=== PATIENT | female | born 1975 | race Caucasian/White ===

== ENCOUNTER 2017-02-26 10:54 | Day surgery (SDC) | payer OTHER ==
[~2017-02-26] VITALS: Ht 162.6 cm; Wt 66.7 kg
[~2017-02-26 10:54] MED LIST: ALEVE220 MG PO; PROBIOTIC1 EAC1 PO; TYLENOL REGULA325 MG PO
[2017-02-26 11:52] VITALS: BP 127/79; BP 128/79
[2017-02-26] MEDS ORDERED: HYDROCODON-ACE1 EAC7 PO (15:10)
[2017-02-26 15:55] LABS: INTERNAL CONTROL VALID? YES
[2017-02-26 16:20] VITALS: BP 126/72
[2017-02-26 17:05] VITALS: BP 109/67
== END 2017-02-26 17:25 | disposition home or self-care (01) ==
LOC: SDC 10:54
PROVIDERS: Surgery
PROC: 0HBU0ZX Excision of Left Breast, Open Approach, Diagnostic (ICD-10-PCS; principal; 2017-02-26)
DX: D24.2 Benign neoplasm of left breast (principal); Z88.2 Allergy status to sulfonamides
CPT/HCPCS: 84703; 88307; J0690; J1100; J1885; J2250; J2405; J3010; S0020